=== PATIENT | female | born 1960 | race Caucasian/White ===

== ENCOUNTER → 2016-12-09 | Outpatient (CLI) | payer OTHER ==
[~2016-12-09] MED LIST: CYM/30 PO; DULO-24 PO; NAPR-1221 PO; ZNT/150 PO
--- NOTE | 2016-12-09 07:58 | DIAGNOSTIC IMAGING REPORT ---
ULTRASOUND OF THE THYROID GLAND CLINICAL HISTORY: Multinodular goiter. COMPARISON STUDY: Thyroid ultrasound dated 04/10/2016. TECHNIQUE: Real-time, grayscale, and color flow sonography of the thyroid gland is performed utilizing a high-frequency linear transducer. Images are reviewed in the transverse and longitudinal planes. FINDINGS: Right lobe: The right lobe of the thyroid gland is normal in size and heterogeneous in echotexture, measuring 4.4 x 2.8 x 2.3 cm. A honeycomb nodule in the upper pole measures 2.3 x 2.8 x 2.2 cm (previously measured 2.5 x 2.1 x 2.3 cm). Left lobe: The left lobe of the thyroid gland is normal in size and heterogeneous in echotexture, measuring 5.3 x 2.5 x 2.8 cm. An isoechoic nodule in the anterior midpole measures 2.1 x 1.6 x 2.2 cm (previously measured 1.9 x 1.5 x 1.6 cm). An isoechoic nodule in the lower pole measures 1.7 x 1.8 x 1.7 cm (previously measured 1.5 x 1.7 x 1.3 cm). Isthmus: The thyroid isthmus is thickened and heterogeneous, measuring 0.9 cm in AP diameter. A nodule in the right aspect of the isthmus measures 2.5 x 2.3 x 2.3 cm (previously measured 2.5 x 1.5 x 2.1 cm). IMPRESSION: Heterogeneous and multinodular thyroid gland as detailed above. This has not significantly changed in appearance from 04/10/2016. Electronically signed by: Ronnie Garber M.D. 12/09/2016 7:57 AM Dictated Date/Time: 12/09/2016 7:54 AM
== END | disposition home or self-care (01) ==
LOC: C.ULTR 06:22
PROVIDERS: ATTEND Physician Assistant Medical
DX: E04.2 Nontoxic multinodular goiter (principal)

== ENCOUNTER → 2017-11-18 | Outpatient (CLI) | payer OTHER ==
--- NOTE | 2017-11-18 09:13 | DIAGNOSTIC IMAGING REPORT ---
SOFT TISS HEAD/NECK-THYROID CLINICAL HISTORY: 57 years-old Female presenting with E04.2 Nontoxic multinodular [id number]. TECHNIQUE: Real-time grayscale and color Doppler ultrasound imaging of the thyroid and base of the neck was performed. COMPARISON: 12/09/2016. FINDINGS: Right lobe: Heterogeneous echogenicity and echotexture. The right lobe of the thyroid measures 6.0 x 2.9 x 2.9 cm. No parenchymal hyperemia. Index nodule(s) enumerated below: 1. Upper pole solid isoechoic circumscribed wider than tall nodule, measuring 2.3 x 2.2 x 2.8 cm. This previously measured 2.3 x 2.8 x 2.2 cm. (Low suspicion) Left lobe: Heterogeneous echogenicity and echotexture. The left lobe of the thyroid measures 6.0 x 2.7 x 2.8 cm. No parenchymal hyperemia. Index nodule(s) enumerated below: 1. Interpolar solid isoechoic circumscribed wider than tall nodule, measuring 2.2 x 1.8 x 1.5 cm. This previously measured 2.1 x 1.6 x 2.2 cm. (Low suspicion) 2. Lower pole solid isoechoic circumscribed round nodule, measuring 2.1 x 1.8 x 1.9 cm. This previously measured 1.7 x 1.8 x 1.7 cm. (Low suspicion) Isthmus: The isthmus measures 12 mm in thickness. No parenchymal hyperemia. Index nodule(s) enumerated below: 1. Isthmus solid isoechoic circumscribed round nodule, measuring 2.1 x 1.8 x 1.9 cm. This previously measured 2.5 x 2.3 x 2.3 cm. (Low suspicion) IMPRESSION: Multiple low suspicion nodules per [place] [employer] criteria. Final aspiration is recommended for nodules measuring greater than or equal to 1.5 cm if this has not previously been performed. Alternatively, continued follow-up by ultrasound could be considered. Electronically signed by: Juanjo Milian M.D. 11/18/2017 9:12 AM Dictated Date/Time: 11/18/2017 8:53 AM
== END | disposition home or self-care (01) ==
LOC: C.ULTR 07:59
DX: E04.2 Nontoxic multinodular goiter (principal)